=== PATIENT | female | born 2000 | race Caucasian/White ===

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

== ENCOUNTER 2019-04-17 11:42 | Emergency (ER) | payer SELFPAY ==
--- NOTE | 2019-04-17 12:58 | ER Document Report ---
ED ENT - General Chief Complaint: Sore Throat Stated Complaint: THROAT PAIN Time Seen by Provider: 04/17/19 12:52 Mode of Arrival: Ambulatory Information source: Patient Notes: 18-year-old female presented to ED for signs and symptoms of cough cold now she has a sore throat and both ears hurting. Denies any fevers as yet. She states her last menstrual cycle was in December. She is alert oriented respirations regular nonlabored speaking in full sentences. TRAVEL OUTSIDE OF THE [place] IN LAST 30 DAYS: No - HPI Patient complains to provider of: Ear problem, Nose problem, Throat problem Onset: Last week Onset/Duration: Gradual Quality of pain: Sharp Severity: Moderate Pain Level: 3 Location of pain: Ears, Nose, Sinus, Throat Associated symptoms: Congestion, Cough, Ear pain, Runny nose, Sinus pain, Sinus drainage, Sore throat Similar symptoms previously: Yes Recently seen / treated by doctor: No - Related Data Allergies/Adverse Reactions: lisdexamfetamine dimesylate [From Vyvanse] Allergy (Severe, Verified 11/11/18 13:21) Dystonia lurasidone HCl [From Latuda] Allergy (Verified 11/11/18 13:21) paliperidone [From Invega] Allergy (Verified 11/11/18 13:21) Past Medical History - General Information source: Patient - Social History Smoking Status: Never Smoker Frequency of alcohol use: None Drug Abuse: None Lives with: Family Family History: Arthritis, CAD, COPD, DM, Hyperlipidemia, Hypertension, Malignancy - mother breast cancer, Thyroid Disfunction, Other - Mother asthma Patient has suicidal ideation: No Patient has homicidal ideation: No - Past Medical History Cardiac Medical History: Reports: Hx Hypercholesterolemia Pulmonary Medical History: Reports: Hx Bronchitis, Hx Pneumonia Renal/ Medical History: Denies: Hx Peritoneal Dialysis Musculoskeletal Medical History: Reports Hx Musculoskeletal Trauma Psychiatric Medical History: Reports: Hx Anxiety, Hx Attention Deficit Hyperactivity Disorder, Hx Bipolar Disorder, Hx Depression, Other - odd Traumatic Medical History: Reports: None Infectious Medical History: Reports: None Past Surgical History: Reports: Hx Adenoidectomy, Hx Oral Surgery - [place] teeth, Hx Tonsillectomy - Immunizations Immunizations up to date: Yes Hx Diphtheria, Pertussis, Tetanus Vaccination: Yes - 2012 Review of Systems - Review of Systems Constitutional: No symptoms reported EENT: Ear pain, Nose congestion, Nose discharge, Sinus pressure, Sinus discharge, Throat pain Cardiovascular: No symptoms reported Respiratory: No symptoms reported Gastrointestinal: No symptoms reported Genitourinary: No symptoms reported Female Genitourinary: No symptoms reported Musculoskeletal: No symptoms reported Skin: No symptoms reported Hematologic/Lymphatic: No symptoms reported Neurological/Psychological: No symptoms reported -: Yes All other systems reviewed and negative Physical Exam - Vital signs Vitals: Temp Pulse Resp BP Pulse Ox 98.6 F 65 20 123/76 100 04/17/19 12:04 04/17/19 12:04 04/17/19 12:04 04/17/19 12:04 04/17/19 12:04 Interpretation: Normal - General General appearance: Appears well, Alert - HEENT Head: Normocephalic, Atraumatic Eyes: Normal Pupils: PERRL Ears: Normal External canal: Normal Tympanic membrane: Normal Sinus: Normal Nasal: Purulent discharge, Swelling Mouth/Lips: Normal Pharynx: Post nasal drainage Neck: Normal - Respiratory Respiratory status: No respiratory distress Chest status: Nontender Breath sounds: Nonproductive cough Chest palpation: Normal - Cardiovascular Rhythm: Regular Heart sounds: Normal auscultation Murmur: No - Abdominal Inspection: Normal Distension: No distension Bowel sounds: Normal Tenderness: Nontender Organomegaly: No organomegaly - Back Back: Normal, Nontender - Extremities General upper extremity: Normal inspection, Nontender, Normal color, Normal ROM, Normal temperature General lower extremity: Normal inspection, Nontender, Normal color, Normal ROM, Normal temperature, Normal weight bearing. No: Eileen's sign - Neurological Neuro grossly intact: Yes Cognition: Normal Orientation: AAOx4 [place] Coma Scale Eye Opening: Spontaneous [place] Coma Scale Verbal: Oriented [place] Coma Scale Motor: Obeys Commands [place] Coma Scale Total: 15 Speech: Normal Motor strength normal: LUE, RUE, LLE, RLE Sensory: Normal - Psychological Associated symptoms: Normal affect, Normal mood - Skin Skin Temperature: Warm Skin Moisture: Dry Skin Color: Normal Course - Re-evaluation Re-evalutation: 04/17/19 21:35 After performing a Medical Screening Examination, I estimate there is LOW risk for ACUTE CORONARY SYNDROME, RESPIRATORY FAILURE, SEPSIS OR MENINGITIS, thus I consider the discharge disposition reasonable. I have reevaluated this patient multiple times and no significant life threatening changes are noted. The patient and I have discussed the diagnosis and risks, and we agree with discharging home with close follow-up. We also discussed returning to the Emergency Department immediately if new or worsening symptoms occur. We have discussed the symptoms which are most concerning (e.g., changing or worsening pain, trouble swallowing or breathing, neck stiffness, fever) that necessitate immediate return. - Vital Signs Vital signs: Temp Pulse Resp BP Pulse Ox 98.4 F 80 18 111/69 97 04/17/19 13:46 04/17/19 13:46 04/17/19 13:46 04/17/19 13:46 04/17/19 13:46 Discharge - Discharge Clinical Impression: Viral sore throat URI (upper respiratory infection) Qualifiers: URI type: unspecified viral URI Qualified Code(s): J06.9 - Acute upper respiratory infection, unspecified Condition: Stable Disposition: HOME, SELF-CARE Additional Instructions: SORE THROAT: Sore throats may be caused by viruses, bacteria, or fungi. Most are due to a virus, and must get better on their own. Bacterial sore throats, particularly those due to "strep," need treatment with antibiotics. If an antibiotic is prescribed, be sure to take the medication for a full 10 days. Failure to take the antibiotic can result in complications such as rheumatic fever. Sometimes, an injection of antibiotics is given instead of pills or liquid. This single "shot" is equal in effectiveness to the oral medication. To relieve symptoms, take acetaminophen for pain. Sip clear liquids frequently, or eat popsicles or ice chips. Anesthetic sprays or lozenges may help. Make sure the air in the room is not too dry. Avoid using decongestants or antihistamines. Call the doctor if there is no improvement in two days, or if you have difficulty breathing, increasing throat pain, high fever, rash, or frequent vomiting. UPPER RESPIRATORY ILLNESS: You have a viral infection of the respiratory passages -- a "cold." This common infection causes nasal congestion, drainage, and often sore throat and cough. It is highly contagious. The disease usually lasts about 10 to 14 days. There is no "cure" for the viral infection -- it must run its course. If there is a complication, such as bacterial infection in the nose, sinuses, middle ear, or bronchial tubes, antibiotics may be required. The antibiotics won't affect the virus. Drink plenty of fluids. A humidifier may help. An expectorant medication or decongestant may make you more comfortable. Use acetaminophen or ibuprofen for fever or aches. See the doctor if fever persists over two days, if there is any significant worsening of your symptoms, or if you simply fail to improve as expected. You have been recommended treatment with Claritin 10 mg and Mucinex 600 mg. These are all anda-xdy-[id number] medications for cough cold congestion. You could also use Flonase which is wajt-eup-tvoetbf 1 spray each nostril twice a day. You could also use salt soda solution gargles. These will help to remove the drainage from the back your throat. Chloraseptic spray was sych-bgj-lwqzaff that will also help with your sore throat. Salt and soda solution gargle 1 quart of water 1 tablespoon of salt 1 teaspoon of baking soda Mixed 3 ingredients together and boil for 1 minute Placed in a covered quart jar Use 1/2 ounce of cold solution to gargle 3 times a day USE OF ACETAMINOPHEN (Tylenol): Acetaminophen may be taken for pain relief or fever control. It's much safer than aspirin, offering a wider range of "safe" dosages. It is safe during . Some brand names are Tylenol, Panadol, Datril, Anacin 3, Tempra, and Liquiprin. Acetaminophen can be repeated every four hours. The following are maximum recommended dosages: >89 pounds or adults 650 mg to 900 mg Acetaminophen can be repeated every four hours. Maximum dose not to exceed 4000 mg a day. FOLLOW-UP CARE: If you have been referred to a physician for follow-up care, call the physicians office for an appointment as you were instructed or within the next two days. If you experience worsening or a significant change in your symptoms, notify the physician immediately or return to the Emergency Department at any time for re-evaluation. Forms: Return to Work
[2019-04-17] MEDS ORDERED: ACETAMINOPHEN 325 MG TABLET PO ONE (13:02)
[2019-04-17 13:51] VITALS: BP 111/69
== END 2019-04-17 14:13 | disposition home or self-care (01) ==
LOC: ER 11:42
DX: J02.8 Acute pharyngitis due to other specified organisms (principal); B97.89 Other viral agents as the cause of diseases classified elsewhere; R05 Cough; H92.03 Otalgia, bilateral; R09.89 Other specified symptoms and signs involving the circulatory and respiratory systems; J34.89 Other specified disorders of nose and nasal sinuses; R09.81 Nasal congestion; R09.82 Postnasal drip; Z88.8 Allergy status to other drugs, medicaments and biological substances
CPT/HCPCS: 87070; 87880; 99283

== ENCOUNTER 2019-06-27 03:19 | Emergency (ER) | payer MEDICAID ==
--- NOTE | 2019-06-27 03:26 | ER Document Report ---
ED General - General Chief Complaint: Psych Problem Stated Complaint: POSSIBLE OVERDOSE Mode of Arrival: Medic Information source: Patient TRAVEL OUTSIDE OF THE [place] IN LAST 30 DAYS: No - HPI Onset: Just prior to arrival Onset/Duration: Gradual Quality of pain: No pain Severity: Moderate Pain Level: 2 Associated symptoms: None Exacerbated by: Denies Similar symptoms previously: No Recently seen / treated by doctor: No Notes: 19 year old female with a history of Anxiety, Bipolar, Depression, ADHD brought to the ER by EMS after an intentional overdose of Clonidine. The patient says she took an unknown quantity of Clonidine tablets in an attempt to harm herself. The patient was drowsy on ER arrival. The patient says she lives with her mother and her mother called EMS. - Related Data Allergies/Adverse Reactions: lisdexamfetamine dimesylate [From Vyvanse] Allergy (Severe, Verified 11/11/18 13:21) Dystonia lurasidone HCl [From Latuda] Allergy (Verified 11/11/18 13:21) paliperidone [From Invega] Allergy (Verified 11/11/18 13:21) Past Medical History - General Information source: Patient - Social History Smoking Status: Never Smoker Frequency of alcohol use: None Drug Abuse: None Family History: Arthritis, CAD, COPD, DM, Hyperlipidemia, Hypertension, Malignancy - mother breast cancer, Thyroid Disfunction, Other - Mother asthma - Past Medical History Cardiac Medical History: Reports: Hx Hypercholesterolemia Pulmonary Medical History: Reports: Hx Bronchitis, Hx Pneumonia Renal/ Medical History: Denies: Hx Peritoneal Dialysis Musculoskeletal Medical History: Reports Hx Musculoskeletal Trauma Psychiatric Medical History: Reports: Hx Anxiety, Hx Attention Deficit Hyper activity Disorder, Hx Bipolar Disorder, Hx Depression Past Surgical History: Reports: Hx Adenoidectomy, Hx Oral Surgery - [place] teeth, Hx Tonsillectomy - Immunizations Immunizations up to date: Yes Hx Diphtheria, Pertussis, Tetanus Vaccination: Yes - 2012 Review of Systems - Review of Systems Constitutional: No symptoms reported EENT: No symptoms reported Cardiovascular: No symptoms reported Respiratory: No symptoms reported Gastrointestinal: No symptoms reported Genitourinary: No symptoms reported Female Genitourinary: No symptoms reported Musculoskeletal: No symptoms reported Skin: No symptoms reported Hematologic/Lymphatic: No symptoms reported Neurological/Psychological: Depression, Suicidal ideation -: Yes All other systems reviewed and negative Physical Exam - Vital signs Vitals: Resp Pulse Ox 18 99 06/27/19 03:21 06/27/19 03:21 - Notes Notes: GENERAL: Drowsy, otherwise well-appearing, well-nourished and in no acute distress. HEAD: Atraumatic, normocephalic. EYES: Pupils equal round and reactive to light, extraocular movements intact, sclera anicteric, conjunctiva are normal. ENT: External ears normal, nares patent, oropharynx clear without exudates. Moist mucous membranes. NECK: Normal range of motion, supple without lymphadenopathy or JVD. LUNGS: Breath sounds clear to auscultation bilaterally and equal. No wheezes rales or rhonchi. HEART: Regular rate and rhythm without murmurs, rubs or gallops. ABDOMEN: Soft, nontender, normoactive bowel sounds. No guarding, no rebound. No masses appreciated. EXTREMITIES: Normal range of motion, no pitting or edema. No clubbing or cyanosis. NEUROLOGICAL: Cranial nerves II through XII grossly intact. Normal speech, normal gait. PSYCH: Flat affect, Depressed mood, patient endorsing SI. SKIN: Warm, Dry, normal turgor, no rashes or lesions noted. Course - Re-evaluation Re-evalutation: 06/27/19 03:52 The patient took an unknown quantity of Clonidine in an effort to kill herself. Patient is drowsy but arrousable in the ER. Poison control consulted and they recommend observing the patient for 4-6 hours in the ER. Patient will need to be seen by psych once she is medically cleared. - Vital Signs Vital signs: Temp Pulse Resp BP Pulse Ox 98.2 F 66 16 97/57 L 98 06/27/19 03:34 06/27/19 05:45 06/27/19 06:01 06/27/19 06:01 06/27/19 06:01 - Laboratory Result Diagrams: 06/27/19 03:20 06/27/19 03:20 Laboratory results interpreted by me: 06/27/19 06/27/19 03:20 03:20 Hct 35.5 L RDW 14.1 H Sodium 136.3 L Glucose 119 H Salicylates < 1.0 L Acetaminophen < 10 L - EKG Interpretation by Mo EKG shows normal: Sinus rhythm, [place], Intervals, QRS Complexes, ST-T Waves Rate: Normal Rhythm: NSR Discharge - Discharge Clinical Impression: Overdose Qualifiers: Encounter type: initial encounter Injury intent: intentional self-harm Qualified Code(s): T50.902A - Poisoning by unspecified drugs, medicaments and biological substances, intentional self-harm, initial encounter Suicidal behavior Qualifiers: Attempted self-injury: with attempted self-injury Qualified Code(s): T14.91XA - Suicide attempt, initial encounter Condition: Stable Disposition: OTHER
[2019-06-27 03:37] LABS: ABSOLUTE BASOPHILS # (AUTO) 0.1 10^3/uL (0.0-0.2); ABSOLUTE EOSINOPHILS # (AUTO) 0.2 10^3/uL (0.0-0.6); ABSOLUTE LYMPHOCYTES (AUTO) 1.1 10^3/uL (0.5-4.7); ABSOLUTE MONOCYTES (AUTO) 0.5 10^3/uL (0.1-1.4); ABSOLUTE NEUT (AUTO) 4.3 10^3/uL (1.7-8.2); BASOPHILS % (AUTO) 0.9 % (0-2); EOSINOPHILS % (AUTO) 3.4 % (0-6); HEMATOCRIT 35.5 % (36.0-47.0); HEMOGLOBIN 12.3 g/dL (12.0-15.5); LYMPHOCYTES % (AUTO) 18.4 % (13-45); MEAN CORPUSCULAR HEMOGLOBIN 29.3 pg (27.0-33.4); MEAN CORPUSCULAR HGB CONC 34.7 g/dL (32.0-36.0); MEAN CORPUSCULAR VOLUME 84 fl (80-97); MONOCYTES % (AUTO) 7.3 % (3-13); PLATELET COUNT 362 10^3/uL (150-450); RED CELL DISTRIBUTION WIDTH 14.1 % (11.5-14.0); TOTAL CELLS COUNTED % (AUTO) 100 %; WHITE BLOOD COUNT 6.2 10^3/uL (4.0-10.5)
[2019-06-27 03:51] LABS: ALKALINE PHOSPHATASE 46 U/L (38-126); ANION GAP 6 (5-19); ASPARTATE AMINO TRANSFERASE 23 U/L (14-36); BILIRUBIN,TOTAL 0.3 mg/dL (0.2-1.3); BLOOD UREA NITROGEN 10 mg/dL (7-20); CARBON DIOXIDE 28 mmol/L (22-30); CHLORIDE 102 mmol/L (98-107); GLUCOSE 119 mg/dL (75-110); POTASSIUM 3.9 mmol/L (3.6-5.0); TOTAL PROTEIN 6.5 g/dL (6.3-8.2)
[2019-06-27 03:56] LABS: ACETAMINOPHEN < 10 ug/mL (10-30); ALCOHOL < 10 mg/dL (NONE DETECTED); SALICYLATE < 1.0 mg/dL (2.0-20.0)
--- NOTE | 2019-06-27 06:34 | ER Document Report ---
Doctor's Note Notes: 06/27/19 06:33 19-year-old female with an attempted suicide with an overdose on clonidine, not on quantity. Poison control recommended observing for 4 to 6 hours. Labs initially as recorded. Psychology/psychiatry consultation is pending. Patient is sipping water with no obvious excessive drowsiness or focal neurological deficits. 06/27/19 13:48 Patient is still awake and alert. Still no pain. No focal neurological deficits. Patient has some episodes of bradycardia intermittently but she is only 19 years of age with a current heart rate of 56 with a stable blood pressure. Psychiatry will hold the patient overnight to make at least 24 hours and reassess. We have started the patient's other medications. We will hold clonidine at this moment.
[2019-06-27 06:41] LABS: APPEARANCE,URINE SLIGHTLY-CLOUDY; BILIRUBIN,URINE NEGATIVE (NEGATIVE); COLOR,URINE YELLOW; GLUCOSE, URINE NEGATIVE (NEGATIVE); KETONES,URINE NEGATIVE (NEGATIVE); LEUKOCYTE ESTERASE,URINE TRACE (NEGATIVE); NITRITE,URINE NEGATIVE (NEGATIVE); PROTEIN,URINE NEGATIVE (NEGATIVE); URINE SPECIFIC GRAVITY 1.024
[2019-06-27 07:04] LABS: URINE AMPHETAMINES SCREEN NEGATIVE; URINE BARBITURATES SCREEN NEGATIVE; URINE BENZODIAZEPINES SCREEN NEGATIVE; URINE COCAINE SCREEN NEGATIVE; URINE METHADONE SCREEN NEGATIVE; URINE PHENCYCLIDINE SCREEN NEGATIVE
[2019-06-27 07:05] LABS: URINE MARIJUANA (THC) SCREEN UNCONFIRMED POSITIVE
[2019-06-27] MEDS: LAMOTRIGINE 100 MG TABLET PO SCH (14:07)
[2019-06-27] MEDS: VENLAFAXINE HCL 75 MG CAP.SR.24H PO SCH (14:07)
[2019-06-27] MEDS: BUSPIRONE HCL 10 MG TABLET PO SCH ×2 (14:07→18:02)
--- NOTE | 2019-06-27 15:17 | PSYCHOLOGICAL NOTE ---
Psych Note - Psych Note Date seen by psych provider: 06/27/19 Time seen by psych provider: 13:35 Psych Note: Reason for Consult: Intentional Overdose Patient presented to [facility] ED Via EMS after an intentional overdose. She reports taking clonidine but in an unknown amount (upon her arrival patient's blood pressure was low for a few hours). She reports she goes to [facility] for medication and therapy but she has not had therapy since COVID " since everything shut down had not been able to have therapy everything got to be too much." Patient states has been doing really well and felt like the medication was working but then she suffered from multiple stressors that happened "all at once" and when she reached out to friends she was unable to contact anyone, "I felt like no one cared when no one answered my phone calls." She reports after taking the medication, she started to get tired and became scared. She states she changed her mind and didn't want to so called her mother; patient lives with her mother, father and sibling. Patient is currently alert and orientated to person, place, time and circumstance. Mood is euthymic with blunted affect. Patient presented after intentional overdose however reports she is no longer experiencing suicidal ideation. Patient denies homicidal ideation. Delusions are absent and behaviors congruent with an intact reality based presentation i.e. organized and linear thought process. Eye contact is well-maintained. Conversational speech is within normal rate, tone and prosody. Intellectual abilities appear to be within the average range. Attention and concentration are currently good. In sight is fair to good as evidenced by patient being able to identify trigger points and how it is connected directly to her intentional overdose. Impulse control is poor. Clinician notes patient is well-groomed no evidence of body odor. Patient has healthy presentation i.e. clear skin, healthy appearance of hair, teeth and nails. Clinician notes patient does have a higher BMI. Home medications are as follows: Clonidine 0.1mg every evening Lamictal 200mg every morning Effexor XR 75mg every morning Buspar 15mg Three times daily Impression/plan: Patient arrived to [facility] ED after an intentional overdose. A 24 hour petition for evaluation has been signed and placed in the patient's chart to assist with ongoing evaluation. Patient reports her medications were working but has not received therapy in week due to social distancing and mandatory closures. Patient reports she changed her mind so called her mother. Plan of care is ongoing (ie contacting collaterals, development of treatment plan, and coordinating with support network and outpatient provider plan of care) and patient will be re-evaluated once she is medically cleared. Dr. Brody was consulted on the care and management of this patient; attending physician is in agreement with recommendations and disposition.
--- NOTE | 2019-06-27 15:27 | EKG REPORT ---
SEVERITY:- NORMAL ECG - SINUS RHYTHM : Confirmed by: Meagan Shields MD 27-Jun-2019 15:27:06
--- NOTE | 2019-06-27 15:28 | EKG REPORT ---
SEVERITY:- OTHERWISE NORMAL ECG - SINUS BRADYCARDIA : Confirmed by: Meagan Shields MD 27-Jun-2019 15:27:03
[2019-06-27] MEDS ORDERED: NORMAL SALINE 1000 ML 1,000 ML IV ONE (15:45)
[2019-06-28] MEDS ORDERED: ACETAMINOPHEN 325 MG TABLET PO ONE (03:52)
[2019-06-28] MEDS: BUSPIRONE HCL 10 MG TABLET PO SCH ×3 (10:36→18:25)
[2019-06-28] MEDS: LAMOTRIGINE 100 MG TABLET PO SCH (10:37)
[2019-06-28] MEDS: VENLAFAXINE HCL 75 MG CAP.SR.24H PO SCH (10:37)
--- NOTE | 2019-06-28 13:49 | ER Document Report ---
Doctor's Note Notes: 06/28/19 13:48 Patient seen by me this morning. She is resting comfortably in the bed. She was complaining of ear fullness bilaterally. On otoscope exam bilaterally no abnormalities were appreciated. Patient otherwise had no significant concerns. Her vital signs were stable with a heart rate in the 50s and a sinus rhythm. Her blood pressure was stable as well. She is currently awaiting psychiatric placement.
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
[2019-06-28] MEDS ORDERED: IBUPROFEN 600 MG TABLET PO ONE (20:13)
[2019-06-28] MEDS ORDERED: MELATONIN 1 MG TABLET PO ONE (22:14)
[2019-06-28] MEDS ORDERED: MELATONIN 5 MG TABLET PO ONE (22:30)
--- NOTE | 2019-06-29 08:54 | ER Document Report ---
Doctor's Note Notes: 06/29/19 08:53 Patient seen and examined. She expresses a wish to not go to a psychiatric facility, but understands this is out of her control. Otherwise she has no acute complaints or concerns. She ate some breakfast. Labs were reviewed, vital signs reviewed. Her heart rate is in the 80s. She is stable, awake, alert. Patient will be transferred to [facility] for further psychiatric care.
[2019-06-29 08:56] VITALS: BP 127/71
== END 2019-06-29 09:05 | disposition other institution (70) ==
LOC: ER 03:19
DX: T46.5X2A Poisoning by other antihypertensive drugs, intentional self-harm, initial encounter (principal); F41.9 Anxiety disorder, unspecified; F32.9 Major depressive disorder, single episode, unspecified; F90.9 Attention-deficit hyperactivity disorder, unspecified type; Z79.899 Other long term (current) drug therapy; Z88.8 Allergy status to other drugs, medicaments and biological substances
CPT/HCPCS: 93005; 99285; 96360; 36415; 80307 ×4; 85025; 81025; 80053; 81001; 93010; J3490 ×9; J7030

== ENCOUNTER 2019-07-20 12:09 | Emergency (ER) | payer MEDICAID ==
[2019-07-20 12:19] VITALS: BP 125/82
--- NOTE | 2019-07-20 12:29 | ER Document Report ---
HPI - HPI Time Seen by Provider: 07/20/19 12:18 Pain Level: 3 Notes: 19-year-old female presents emergency room for complaints of right ear pain, right jaw pain x2 days ago. Patient states she yawned "really big and then I heard a pop". Patient tried 200 mg of ibuprofen without relief. Has not tried any heat or icing. Denies any trauma to her face or body. No prior injury to TMJ. lmp 06/25/19. Does report she has seasonal allergies but is not taking any allergy medication. denies fevers, chills, chest pain,palpitations, shortness of breath, dyspnea, nausea, vomiting, diarrhea, abdominal pain, hematuria, vision changes, speech changes, LH, dizziness, syncope, headaches, wheezing, ST, URI, neck pain, weakness, bowel or bladder dysfunction, saddle anesthesia, numbness or tingling in bilateral upper or lower extremities equally, muscle paralysis, weakness in bilateral upper or lower extremities equally or rash. REVIEW OF SYSTEMS:reviewed vital signs by RN CONSTITUTIONAL : Denies fever, chills, or sweats. Denies recent illness. EENT: Denies eye, ear, throat, or mouth pain or symptoms. Denies nasal or sinus congestion or discharge. Reports right TMJ pain, right ear pain. denies throat, tongue, or mouth swelling or difficulty swallowing. CARDIOVASCULAR: Denies chest pain. Denies palpitations or racing or irregular heart beat. Denies ankle edema. RESPIRATORY: Denies cough, cold, or chest congestion. Denies shortness of breath, difficulty breathing, or wheezing. GASTROINTESTINAL: Denies abdominal pain or distention. Denies nausea, vomiting, or diarrhea. Denies blood in vomitus, stools, or per rectum. Denies black, tarry stools. Denies constipation. GENITOURINARY: Denies difficulty urinating, painful urination, burning, frequency, blood in urine, or discharge. FEMALE GENITOURINARY: Denies vaginal bleeding, heavy or abnormal periods, irregular periods. Denies vaginal discharge or odor. MUSCULOSKELETAL: Denies back or neck pain or stiffness. Denies joint pain or swelling. SKIN: Denies rash, lesions or sores. HEMATOLOGIC : Denies easy bruising or bleeding. LYMPHATIC: Denies swollen, enlarged glands. NEUROLOGICAL: Denies confusion or altered mental status. Denies passing out or loss of consciousness. Denies dizziness or lightheadedness. Denies headache. Denies weakness or paralysis or loss of use of either side. Denies problems with gait or speech. Denies sensory loss, numbness, or tingling. Denies seizures. PSYCHIATRIC: Denies anxiety or stress. Denies depression, suicidal ideation, or homicidal ideation. ALL OTHER SYSTEMS REVIEWED AND NEGATIVE. PHYSICAL EXAMINATION: GENERAL: Well-appearing, well-nourished and in no acute distress. HEAD: Atraumatic, normocephalic. EYES: Pupils equal round and reactive to light, extraocular movements intact, conjunctiva are normal. ENT: Nares patent, oropharynx clear without exudates. Moist mucous membranes. Right TM dull, positive right light reflex, intact. Tenderness to right TMJ on palpation. NECK: Normal range of motion, supple without lymphadenopathy LUNGS: Breath sounds clear to auscultation bilaterally and equal. No wheezes rales or rhonchi. HEART: Regular rate and rhythm without murmurs ABDOMEN: Soft, nontender, nondistended abdomen. No guarding, no rebound. No masses appreciated. Female : deferred Musculoskeletal: Normal range of motion, no pitting or edema. No cyanosis. NEUROLOGICAL: Cranial nerves grossly intact. Normal speech, normal gait. Normal sensory, motor exams PSYCH: Normal mood, normal affect. SKIN: Warm, Dry, normal turgor, no rashes or lesions noted. Dictation was performed using [employer] voice recognition software - REPRODUCTIVE Reproductive: DENIES: : Past Medical History - General Information source: Patient - Social History Smoking Status: Unknown if Ever Smoked Family History: Arthritis, CAD, COPD, DM, Hyperlipidemia, Hypertension, Malignancy - mother breast cancer, Thyroid Disfunction, Other - Mother asthma Patient has homicidal ideation: No - Past Medical History Cardiac Medical History: Reports: Hx Hypercholesterolemia Pulmonary Medical History: Reports: Hx Bronchitis, Hx Pneumonia Renal/ Medical History: Denies: Hx Peritoneal Dialysis Musculoskeletal Medical History: Reports Hx Musculoskeletal Trauma Psychiatric Medical History: Reports: Hx Anxiety, Hx Attention Deficit Hyperactivity Disorder, Hx Bipolar Disorder, Hx Depression Past Surgical History: Reports: Hx Adenoidectomy, Hx Oral Surgery - [place] teeth, Hx Tonsillectomy - Immunizations Immunizations up to date: Yes Hx Diphtheria, Pertussis, Tetanus Vaccination: Yes - [facility] Provider Document - CONSTITUTIONAL Agree With Documented VS: Yes Exam Limitations: No Limitations General Appearance: WD/WN - INFECTION CONTROL TRAVEL OUTSIDE OF THE [place] IN LAST 30 DAYS: No Course - Re-evaluation Re-evalutation: 07/20/19 12:29 Afebrile vital stable, no distress. Nurses notes reviewed. Discussed with patient that she has strained her right TMJ, to apply heat 20 minutes on 20 minutes off several times a day, alternate to Tylenol of 1 g every 8 hours and ibuprofen 800 mg every 6 hours to help with pain and inflammation. Advised to avoid any foods that are hard to chew such as steak. If she still experiences pain after a week or so for reevaluation by provider. After performing a Medical Screening Examination, I estimate there is LOW risk for malignant otitis media, mastoiditis, MENINGITIS, or ACUTE CORONARY SYNDROME, thus I consider the discharge disposition reasonable. I have reevaluated this patient multiple times and no significant life threatening changes are noted. The patient and I have discussed the diagnosis and risks, and we agree with discharging home to follow-up on an outpatient basis with the understanding that symptoms and presentations can change. We also discussed returning to the Emergency Department immediately if new or worsening symptoms occur. We have discussed the symptoms which are most concerning (e.g., high fevers, confusion) that necessitate immediate return. - Vital Signs Vital signs: Temp Pulse Resp BP Pulse Ox 98.7 F 84 16 125/82 98 07/20/19 12:19 07/20/19 12:14 07/20/19 12:14 07/20/19 12:14 07/20/19 12:14 Discharge - Discharge Clinical Impression: TMJ (sprain of temporomandibular joint) Qualifiers: Encounter type: initial encounter Qualified Code(s): S03.40XA - Sprain of jaw, unspecified side, initial encounter Condition: Stable Disposition: HOME, SELF-CARE Additional Instructions: Temporomandibular Joint Injury You have an injury to your jaw joint, called the temporomandibular (TMJ) joint. This type of injury usually heals well, but further evaluation is often necessary. Occasionally, chronic symptoms can develop if the TMJ fails to heal well. The joint should be rested. Stay on a diet which requires no chewing -- such as milkshakes, applesauce, and puddings. Avoid any motion of the jaw which provokes pain. Periodic ice packs help decrease swelling and pain. Take [id number] ibuprofen and Tylenol as needed for pain. If the physician is suspicious of a major hidden fracture, or if you fail to improve as expected, a specialized X-ray (Panorex) may be scheduled. You should follow up as instructed, and call the physician if you encounter any problems. Return immediately for any new or worsening symptoms. Follow up with primary care provider, call tomorrow to make followup appointment. Referrals: SUMAN MYERS MD [ACTIVE STAFF] - Follow up as needed
== END 2019-07-20 12:30 | disposition home or self-care (01) ==
LOC: ER 12:09
DX: S03.40XA Sprain of jaw, unspecified side, initial encounter (principal); X58.XXXA Exposure to other specified factors, initial encounter; H92.01 Otalgia, right ear; R68.84 Jaw pain
CPT/HCPCS: 99283

== ENCOUNTER 2019-08-12 11:31 | Emergency (ER) | payer MEDICAID ==
[2019-08-12 11:37] VITALS: BP 129/71
--- NOTE | 2019-08-12 12:11 | ER Document Report ---
ED ENT - General Chief Complaint: Eye Pain Stated Complaint: EYE PAIN/HEADACHE/NAUSEA Time Seen by Provider: 08/12/19 11:59 Mode of Arrival: Ambulatory Information source: Patient Notes: 19-year-old female presented to ED for complaint of puffy itchy eyes congestion no sore throat runny nose. She states she has had the symptoms for couple days. She is alert oriented respirations regular nonlabored speaking in full sentences. She does have signs and symptoms of either allergic rhinitis or upper respiratory infection. She has no other symptoms at this time she is afebrile vital signs stable. I have discussed with her upper respiratory symptoms control and ice packs for her eyes. She does not have conjunctivitis. TRAVEL OUTSIDE OF THE [place] IN LAST 30 DAYS: No - HPI Patient complains to provider of: Other - Puffy itchy eyes Onset: Other - Couple days Onset/Duration: Gradual Quality of pain: Other - Puffy itchy eyes Severity: Mild Pain Level: 1 Location of pain: Other - Runny nose puffy eyes Associated symptoms: Runny nose, Sinus drainage, Other - Puffy itchy eyes nasal drainage Similar symptoms previously: Yes Recently seen / treated by doctor: No - Related Data Allergies/Adverse Reactions: lisdexamfetamine dimesylate [From Vyvanse] Allergy (Severe, Verified 08/12/19 11:59) Dystonia lurasidone HCl [From Latuda] Allergy (Verified 08/12/19 11:59) paliperidone [From Invega] Allergy (Verified 08/12/19 11:59) Past Medical History - Social History Smoking Status: Never Smoker Chew tobacco use (# tins/day): No Frequency of alcohol use: Rare Drug Abuse: None Lives with: Family Family History: Arthritis, CAD, COPD, DM, Hyperlipidemia, Hypertension, Malignancy - mother breast cancer, Thyroid Disfunction, Other - Mother asthma Patient has homicidal ideation: No - Past Medical History Cardiac Medical History: Reports: Hx Hypercholesterolemia Pulmonary Medical History: Reports: Hx Bronchitis, Hx Pneumonia EENT Medical History: Reports: None Neurological Medical History: Reports: None Endocrine Medical History: Reports: None Renal/ Medical History: Reports: None Malignancy Medical History: Reports: None GI Medical History: Reports: None Musculoskeletal Medical History: Reports Hx Musculoskeletal Trauma Skin Medical History: Reports None Psychiatric Medical History: Reports: Hx Anxiety, Hx Attention Deficit Hyperactivity Disorder, Hx Bipolar Disorder, Hx Depression Traumatic Medical History: Reports: None Infectious Medical History: Reports: None Past Surgical History: Reports: Hx Adenoidectomy, Hx Oral Surgery - [place] teeth, Hx Tonsillectomy - Immunizations Immunizations up to date: Yes Hx Diphtheria, Pertussis, Tetanus Vaccination: Yes - 2012 Review of Systems - Review of Systems EENT: Eye pain - Itchy eyes, Nose congestion, Sinus pressure, Sinus discharge Cardiovascular: No symptoms reported Respiratory: No symptoms reported Gastrointestinal: No symptoms reported Genitourinary: No symptoms reported Female Genitourinary: No symptoms reported Musculoskeletal: No symptoms reported Skin: No symptoms reported Hematologic/Lymphatic: No symptoms reported Neurological/Psychological: No symptoms reported -: Yes All other systems reviewed and negative Physical Exam - Vital signs Vitals: Temp Pulse Resp BP Pulse Ox 99.0 F 90 20 129/71 H 98 08/12/19 11:36 08/12/19 11:36 08/12/19 11:36 08/12/19 11:36 08/12/19 11:36 Interpretation: Normal - General General appearance: Appears well, Alert - HEENT Head: Normocephalic, Atraumatic Eyes: Normal Conjunctiva: Other - Puffy itchy eyes. No: Icteric, Injected, Purulent discharge Extraocular movements intact: Yes Pupils: PERRL Ears: Normal External canal: Normal Tympanic membrane: Normal Sinus: Normal Nasal: Swelling, Clear rhinorrhea Mouth/Lips: Normal Mucous membranes: Normal Pharynx: Post nasal drainage Neck: Normal - Respiratory Respiratory status: No respiratory distress Chest status: Nontender Breath sounds: Normal Chest palpation: Normal - Cardiovascular Rhythm: Regular Heart sounds: Normal auscultation Murmur: No - Abdominal Inspection: Normal Distension: No distension Bowel sounds: Normal Tenderness: Nontender Organomegaly: No organomegaly - Back Back: Normal, Nontender - Extremities General upper extremity: Normal inspection, Nontender, Normal color, Normal ROM, Normal temperature General lower extremity: Normal inspection, Nontender, Normal color, Normal ROM, Normal temperature, Normal weight bearing. No: Eileen's sign - Neurological Neuro grossly intact: Yes Cognition: Normal Orientation: AAOx4 [place] Coma Scale Eye Opening: Spontaneous [place] Coma Scale Verbal: Oriented [place] Coma Scale Motor: Obeys Commands [place] Coma Scale Total: 15 Speech: Normal Motor strength normal: LUE, RUE, LLE, RLE Sensory: Normal - Psychological Associated symptoms: Normal affect, Normal mood - Skin Skin Temperature: Warm Skin Moisture: Dry Skin Color: Normal Course - Re-evaluation Re-evalutation: 08/12/19 12:13 After performing a Medical Screening Examination, I estimate there is LOW risk for ACUTE CORONARY SYNDROME, RESPIRATORY FAILURE, SEPSIS OR MENINGITIS, thus I consider the discharge disposition reasonable. I have reevaluated this patient multiple times and no significant life threatening changes are noted. The patient and I have discussed the diagnosis and risks, and we agree with discharging home with close follow-up. We also discussed returning to the Emergency Department immediately if new or worsening symptoms occur. We have discussed the symptoms which are most concerning (e.g., changing or worsening pain, trouble swallowing or breathing, neck stiffness, fever) that necessitate immediate return. - Vital Signs Vital signs: Temp Pulse Resp BP Pulse Ox 99 F 90 20 129/71 H 98 08/12/19 12:00 08/12/19 11:36 08/12/19 11:36 08/12/19 11:36 08/12/19 11:36 Discharge - Discharge Clinical Impression: URI (upper respiratory infection) Qualifiers: URI type: unspecified viral URI Qualified Code(s): J06.9 - Acute upper respiratory infection, unspecified Condition: Stable Disposition: HOME, SELF-CARE Additional Instructions: UPPER RESPIRATORY ILLNESS: You have a viral infection of the respiratory passages -- a "cold." This common infection causes nasal congestion, drainage, and often sore throat and cough. It is highly contagious. The disease usually lasts about 10 to 14 days. There is no "cure" for the viral infection -- it must run its course. If there is a complication, such as bacterial infection in the nose, sinuses, middle ear, or bronchial tubes, antibiotics may be required. The antibiotics won't affect the virus. Drink plenty of fluids. A humidifier may help. An expectorant medication or decongestant may make you more comfortable. Use acetaminophen or ibuprofen for fever or aches. See the doctor if fever persists over two days, if there is any significant worsening of your symptoms, or if you simply fail to improve as expected. You have been recommended treatment with Claritin 10 mg Sudafed 30 mg and Mucinex 600 mg. These are all [id number] medications for cough cold congestion. You do need to call the go to the pharmacist to get the Sudafed from behind the counter please get a little red pills they are more effective. You could also use Flonase which is [id number] 1 spray each nostril twice a day. You could also use salt soda solution gargles. These will help to remove the drainage from the back your throat. Chloraseptic spray was [id number] that will also help with your sore throat. Salt and soda solution gargle 1 quart of water 1 tablespoon of salt 1 teaspoon of baking soda Mixed 3 ingredients together and boil for 1 minute Placed in a covered quart jar Use 1/2 ounce of cold solution to gargle 3 times a day USE OF ACETAMINOPHEN (Tylenol): Acetaminophen may be taken for pain relief or fever control. It's much safer than aspirin, offering a wider range of "safe" dosages. It is safe during . Some brand names are Tylenol, Panadol, Datril, Anacin 3, Tempra, and Liquiprin. Acetaminophen can be repeated every four hours. The following are maximum recommended dosages: >89 pounds or adults 650 mg to 900 mg Acetaminophen can be repeated every four hours. Maximum dose not to exceed 4000 mg a day. SMOKING: If you smoke, you should stop smoking. The tar and chemicals in cigarette smoke are harmful. Smoking has been shown to cause: emphysema chronic bronchitis lung cancer mouth and throat cancer stomach and pancreas cancer premature aging defects In addition, smoking increases ear and lung infections in children of smokers. Ice Packs Apply ice packs frequently against the painful area. Many different schedules are recommended, such as "20 minutes on, 20 minutes off" or "one hour ice, two hours rest." If you need to work, you may need to go longer between ice treatments. You should plan to have the area ice packed AT LEAST one fourth of the time. The ice should be applied over the wrap, tape, or splint, or over a layer of cloth -- not directly against the skin. Some ice bags have a built-in cloth and can be put directly on the skin. FOLLOW-UP CARE: If you have been referred to a physician for follow-up care, call the physicians office for an appointment as you were instructed or within the next two days. If you experience worsening or a significant change in your symptoms, notify the physician immediately or return to the Emergency Department at any time for re-evaluation. Forms: Elevated Blood Pressure, Smoking Cessation Education, Return to Work Referrals: [facility] [Provider Group] - Follow up as needed [facility] [Provider Group] - Follow up as needed
== END 2019-08-12 12:19 | disposition home or self-care (01) ==
LOC: ER 11:31
DX: J06.9 Acute upper respiratory infection, unspecified (principal); B97.89 Other viral agents as the cause of diseases classified elsewhere; H57.89 Other specified disorders of eye and adnexa; R09.81 Nasal congestion; R09.82 Postnasal drip; J34.89 Other specified disorders of nose and nasal sinuses; Z87.01 Personal history of pneumonia (recurrent); Z88.8 Allergy status to other drugs, medicaments and biological substances
CPT/HCPCS: 99283

== ENCOUNTER 2019-11-15 00:56 | Emergency (ER) | payer MEDICAID ==
[2019-11-15 03:20] LABS: APPEARANCE,URINE SLIGHTLY-CLOUDY; BILIRUBIN,URINE NEGATIVE (NEGATIVE); COLOR,URINE YELLOW; GLUCOSE, URINE NEGATIVE (NEGATIVE); KETONES,URINE NEGATIVE (NEGATIVE); LEUKOCYTE ESTERASE,URINE TRACE (NEGATIVE); NITRITE,URINE NEGATIVE (NEGATIVE); PROTEIN,URINE NEGATIVE (NEGATIVE); URINE SPECIFIC GRAVITY 1.018; UROBILINOGEN,URINE NEGATIVE mg/dL (<2.0)
[2019-11-15] MEDS ORDERED: PROCHLORPERAZINE EDISYLATE INJ 10 MG/2 ML VIAL IV ONE (03:47)
[2019-11-15] MEDS ORDERED: NORMAL SALINE 1000 ML 1,000 ML IV ONE (03:47)
[2019-11-15] MEDS ORDERED: KETOROLAC TROMETHAMINE INJ/PF 30 MG/1 ML SDV IV ONE (03:48)
[2019-11-15 04:19] LABS: ABSOLUTE EOSINOPHILS # (AUTO) 0.1 10^3/uL (0.0-0.6); ABSOLUTE MONOCYTES (AUTO) 0.3 10^3/uL (0.1-1.4); HEMOGLOBIN 12.6 g/dL (12.0-15.5); TOTAL CELLS COUNTED % (AUTO) 100 %
[2019-11-15 04:26] LABS: ABSOLUTE LYMPHOCYTES (AUTO) 0.8 10^3/uL (0.5-4.7); ABSOLUTE NEUT (AUTO) 1.3 10^3/uL (1.7-8.2); BASOPHILS % (AUTO) 0.4 % (0-2); EOSINOPHILS % (AUTO) 4.3 % (0-6); HEMATOCRIT 36.1 % (36.0-47.0); LYMPHOCYTES % (AUTO) 31.8 % (13-45); MEAN CORPUSCULAR HEMOGLOBIN 28.3 pg (27.0-33.4); MEAN CORPUSCULAR HGB CONC 34.9 g/dL (32.0-36.0); MEAN CORPUSCULAR VOLUME 81 fl (80-97); MONOCYTES % (AUTO) 11.3 % (3-13); PLATELET COUNT 232 10^3/uL (150-450); RED BLOOD COUNT 4.44 10^6/uL (3.72-5.28); RED CELL DISTRIBUTION WIDTH 13.9 % (11.5-14.0); SEGMENTED NEUTROPHILS % (AUTO) 52.2 % (42-78); WHITE BLOOD COUNT 2.6 10^3/uL (4.0-10.5)
[2019-11-15 04:28] LABS: INTERNATIONAL RATION (INR) 1.03; PROTHROMBIN TIME 13.7 SEC (11.4-15.4)
[2019-11-15 04:29] LABS: PARTIAL THROMBOPLASTIN TIME 31.4 SEC (23.5-35.8)
[2019-11-15 04:36] LABS: ALBUMIN 4.3 g/dL (3.5-5.0); ALKALINE PHOSPHATASE 50 U/L (38-126); ANION GAP 8 (5-19); ASPARTATE AMINO TRANSFERASE 29 U/L (14-36); BILIRUBIN,DIRECT 0.3 mg/dL (0.0-0.4); BILIRUBIN,TOTAL 0.4 mg/dL (0.2-1.3); BLOOD UREA NITROGEN 5 mg/dL (7-20); CALCIUM 8.8 mg/dL (8.4-10.2); CARBON DIOXIDE 28 mmol/L (22-30); CHLORIDE 103 mmol/L (98-107); CREATINE KINASE 71 U/L (30-135); GLUCOSE 89 mg/dL (75-110); POTASSIUM 3.4 mmol/L (3.6-5.0); TOTAL PROTEIN 6.8 g/dL (6.3-8.2)
--- NOTE | 2019-11-15 04:55 | ER Document Report ---
ED General - General Chief Complaint: eye pain and body aches Stated Complaint: SEVERE HEADACHE/EYE PAIN,NAUSEA,FEVER Notes: 19-year-old female with no medical history and noncontributory psychiatric history presents with few days gradual onset gradually worsening severe frontal headache associated with bilateral severe eye pain and photophobia and fever for the past day. Patient also endorses nausea with no vomiting and few episodes of loose nonbloody nonblack stool and generalized malaise and myalgia. Patient denies vomiting, neck pain or rigidity, sick contacts, throat pain, facial pain, dental pain, rashes, blurry vision, double vision, drug use, bleeding diatheses, anticoagulation, weakness or numbness, vertigo, change in vision/speech/gait, prior episodes, recent travel. Patient on 2 unknown antibiotics for bacterial vaginosis and UTI which have resolved her symptoms. No current urinary or vaginal symptoms. TRAVEL OUTSIDE OF THE [place] IN LAST 30 DAYS: No - Related Data Allergies/Adverse Reactions: lisdexamfetamine dimesylate [From Vyvanse] Allergy (Severe, Verified 08/12/19 1 1:59) Dystonia lurasidone HCl [From Latuda] Allergy (Verified 08/12/19 11:59) paliperidone [From Invega] Allergy (Verified 08/12/19 11:59) Home Medications: lamictal, Pepcid, effexor Past Medical History - General Information source: Patient - Social History Smoking Status: Never Smoker Chew tobacco use (# tins/day): No Frequency of alcohol use: None Drug Abuse: Marijuana Family History: Arthritis, CAD, COPD, DM, Hyperlipidemia, Hypertension, Malignancy - mother breast cancer, Thyroid Disfunction, Other - Mother asthma - Past Medical History Cardiac Medical History: Reports: Hx Hypercholesterolemia Pulmonary Medical History: Reports: Hx Bronchitis, Hx Pneumonia Renal/ Medical History: Denies: Hx Peritoneal Dialysis Musculoskeletal Medical History: Reports Hx Musculoskeletal Trauma Psychiatric Medical History: Reports: Hx Anxiety, Hx Attention Deficit Hyperactivity Disorder, Hx Bipolar Disorder, Hx Depression Past Surgical History: Reports: Hx Adenoidectomy, Hx Oral Surgery - [place] teeth, Hx Tonsillectomy - Immunizations Immunizations up to date: Yes Hx Diphtheria, Pertussis, Tetanus Vaccination: Yes - 2012 Review of Systems - Review of Systems Notes: REVIEW OF SYSTEMS: CONSTITUTIONAL : + fever, chills, or sweats. EENT: Denies recent cold symptoms, denies throat pain CARDIOVASCULAR: Denies chest pain, FABIOLA RESPIRATORY: Denies cough, denies shortness of breath. GASTROINTESTINAL: Denies abdominal pain, +nausea -vomiting. GENITOURINARY: Denies difficulty urinating, painful urination. FEMALE GENITOURINARY: Denies abnormal vaginal bleeding, vaginal discharge. MUSCULOSKELETAL: Denies neck pain, back pain. SKIN: Denies rash or skin lesions. HEMATOLOGIC : Denies easy bruising or bleeding. LYMPHATIC: Denies swollen, enlarged glands. NEUROLOGICAL: + headache, denies change in gait. PSYCHIATRIC: Denies anxiety or stress or depression. Physical Exam - Vital signs Vitals: Temp Pulse Resp BP Pulse Ox 99.6 F 117 H 20 111/72 100 11/15/19 01:11/15/19 01:11/15/19 01:11/15/19 01:11/15/19 01:09 - Notes Notes: PHYSICAL EXAMINATION: GENERAL: Very uncomfortable but nontoxic appearing young adult female lying in stretcher HEAD: Atraumatic, normocephalic, bilateral piercings between lower lip and chin with no signs of infection, no sinus tenderness EYES: Pupils equal round and appropriate constriction, sclera anicteric, conjunctiva are normal. ENT: nares patent, moist mucous membranes, normal oropharynx NECK: Normal range of motion, supple without lymphadenopathy LUNGS: Breath sounds clear to auscultation bilaterally and equal. No wheezes rales or rhonchi. HEART: Regular rate and rhythm without murmurs ABDOMEN: Soft, nontender, no guarding, no masses, no CVAT EXTREMITIES: Normal range of motion, no pitting or edema. No cyanosis. NEUROLOGICAL: Awake, alert, conversing appropriately, moves all extremities spontaneously. Extraocular movements limited by pain, cranial nerves II through XII intact bilaterally otherwise, normal [id number] bilaterally, 5/5 strength in all extremities, normal sensation in all extremities PSYCH: Normal mood, normal affect. SKIN: Warm, Dry, normal turgor, no rashes or lesions noted. Course - Re-evaluation Re-evalutation: 11/15/19 04:55 Likely a migraine triggered by viral symptoms, but given severe eye pain bilaterally and fever will rule out cavernous sinus thrombosis. No signs of meningitis, no neck pain or rigidity, unlikely brain abscess but will assess this on CT, rule out COVID, rhabdo, electrolyte abnormalities, symptomatic treatment, IV hydration, reassess. Likely DC with symptomatic therapy PCP follow-up and return precautions. 11/15/19 05:44 Patient feels greatly improved after meds and fluids, was sleeping comfortably in room when I went to reevaluate her, patient expresses relief that her symptoms have abated. Now able to tolerate full eye exam which is normal, patient's left eye IOP 16, right eye 19. Visual acuity being obtained currently. When CTA read results will discharge barring any emergent findings. Pt given return to ED precautions which he demonstrate understanding of. The patient was evaluated during the global COVID-19 pandemic and that diagnosis was suspected/considered upon their initial presentation. Their evaluation, treatment and testing was consistent with current guidelines for patients who present with complaints or symptoms that may be related to COVID-19. 11/15/19 05:59 Visual acuity normal bilaterally, received verbal report from CTA with no emergent findings, patient ready for discharge. - Vital Signs Vital signs: Temp Pulse Resp BP Pulse Ox 98.7 F 72 17 115/59 L 98 11/15/19 04:33 11/15/19 04:33 11/15/19 04:33 11/15/19 04:33 11/15/19 04:33 - Laboratory Result Diagrams: 11/15/19 03:59 11/15/19 03:59 Laboratory results interpreted by me: 11/15/19 11/15/19 11/15/19 02:30 03:59 03:59 WBC 2.6 L Absolute Neuts (auto) 1.3 L Potassium 3.4 L BUN 5 L Ur Leukocyte Esterase TRACE H Discharge - Discharge Clinical Impression: Viral syndrome Headache Qualifiers: Headache type: unspecified Headache chronicity pattern: acute headache Intractability: not intractable Qualified Code(s): R51 - Headache Leukopenia Qualifiers: Leukopenia type: unspecified Qualified Code(s): D72.819 - Decreased white blood cell count, unspecified Disposition: HOME, SELF-CARE Additional Instructions: Fever Fever is the body's reaction to infection. Fever can also occur with illnesses that create fever-producing substances in the body. By itself, fever is not harmful. It helps the body fight invading germs. We are more concerned with: (1) What's causing the fever? (2) How can we keep you more comfortable until the fever goes away? Early in an illness, symptoms are often so vague that a diagnosis can't be made. If the doctor hasn't identified a clear cause for your fever, you will pr obably develop new symptoms within the next two days. Contact the doctor if you develop severe worsening headache, rash, chest pain, cough with yellow or green sputum, difficulty breathing, abdominal pain, or other new symptoms. There is no reason to treat a fever if you're comfortable. If the fever is causing aches, headache, and fatigue, you can treat it with ibuprofen (Advil, Nuprin, etc) or acetaminophen (Tylenol). Follow the directions on the bottle. Get plenty of liquids (three quarts per day). Rest. Physical work or sports will raise the temperature higher and make you feel much worse. Dress lightly. If you're chilling, this means the temperature is trying to go higher. Take ibuprofen or acetaminophen. When you feel sweaty and "feverish" the temperature is coming down. If the fever doesn't go away within two days or if you become more ill, call the doctor or return at once for re-examination. Patient was provided with discharge information including: As a person under investigation for Covid 19, the [place] department of Health and Human Services, division of public health advises you to adhere to the following guidance until your test results are reported to you. If your test result is positive, you will receive additional information from your provider and your local health department at that time. Remain at home until you are cleared by the health provider or public health authorities. Keep a log of visitors to your home, notify any visitors to your home of your isolation status. If you plan to move to a new address or leave the county, notify the local health department in your County. Call your doctor or seek care if you have an urgent medical need. Before seeking medical care, call ahead to get instructions from the provider before arriving at the medical office clinic or hospital. Notify them that you are b eing tested for the virus that causes Covid 19 so that arrangements can be made, as necessary, to prevent transmission to others in the healthcare setting. Next, notify the local health department in your county. If a medical emergency arises and you need to call [id number], inform the first responders that you are being tested for the virus that causes Covid 19. Next, notify the local health department in your county. Follow-up with your primary doctor within 1 week. Your white blood cells are low during this visit, you will need to discuss this with your primary doctor and make sure that it is normal after you feel better. If you have any worsening symptoms, vomiting, neck stiffness, change in vision, double vision, blurry vision, or any other worsening or alarming symptoms please return to the emergency department immediately. Prescriptions: Ibuprofen [Ibu] 600 mg PO Q6HP PRN #20 tablet PRN Reason: Acetaminophen with Codeine [Tylenol #3 Tablet] 1 each PO Q6HP PRN #6 tablet PRN Reason:
[2019-11-15] MEDS ORDERED: POTASSIUM CHLORIDE 10 MEQ TABLET.ER PO ONE ×2 (05:47→07:00)
--- NOTE | 2019-11-15 06:03 | RADIOLOGY REPORT (SQ) ---
CTA brain: Technique: Postcontrast imaging was obtained through the head after intravenous contrast is administered utilizing a CTA protocol. MIP reconstructed sagittal and coronal images were also obtained. Noncontrast imaging was also obtained. This exam was performed according to our departmental dose-optimization program, which includes automated exposure control, adjustment of the mA and/or KV according to the patient's size and/or use of iterative reconstruction technique. COMPARISON: CT the head from 06/24/2017 HISTORY: 19-year-old patient with concern for an acute stroke. FINDINGS: No discrete filling defect is seen within the middle, anterior, and posterior cerebral arteries. The right posterior communicating artery is small in size. The visualized vertebral arteries appear unremarkable. The carotid arteries appear to be well opacified. No obvious aneurysm or stenosis is readily apparent. The basilar artery and visualized portions of the posterior circulation appear unremarkable. No focal filling defect is seen at the visualized dural venous sinuses. The ventricles are within normal limits for size. Both orbits appear unremarkable. The mastoid air cells appear clear. There is mild mucoperiosteal thickening of the ethmoid sinuses. The calvarium is intact. No extra-axial fluid collection is seen. The naik-white matter differentiation is within normal limits. No midline shift or mass effect is apparent. There are no findings to suggest acute intracranial hemorrhage. IMPRESSION: No discrete filling defect, aneurysm, or obvious stenosis is seen within the anterior or posterior intracranial circulation. No acute intracranial hemorrhage is seen.
[2019-11-15 06:38] VITALS: BP 111/72
== END 2019-11-15 06:41 | disposition home or self-care (01) ==
LOC: ER 00:56
DX: D72.819 Decreased white blood cell count, unspecified (principal); B34.9 Viral infection, unspecified; H57.13 Ocular pain, bilateral; R51 Headache; M79.10 Myalgia, unspecified site; H53.149 Visual discomfort, unspecified; R50.9 Fever, unspecified; Z20.828 Contact with and (suspected) exposure to other viral communicable diseases; E78.00 Pure hypercholesterolemia, unspecified
CPT/HCPCS: 99285; 96361; 96374; 96375; 36415; 87086; 82550; 85025; 85610; 85730; 87635; 81025; 87088; 80053; 81001; 87186; 70496; J1885; J0780; J7030; C9803